=== PATIENT | female | born 1960 | race Caucasian/White ===

== ENCOUNTER → 2020-10-13 | Outpatient (REF) | payer OTHER | LOC: M LAB REF 18:24 | PROVIDERS: ATTEND Internal Medicine Nephrology | DX: E83.42 Hypomagnesemia (principal) ==

== ENCOUNTER → 2021-01-13 | Outpatient (REF) | payer OTHER | LOC: M LAB REF 17:36 | PROVIDERS: ATTEND Internal Medicine Nephrology | DX: E83.42 Hypomagnesemia (principal) ==

== ENCOUNTER → 2024-02-22 | Day surgery (SDC) | payer OTHER ==
[~2024-02-22] VITALS: Ht 157.5 cm; Wt 78.9 kg
[~2024-02-22] MED LIST: ATOR1TAB21 PO; BSS IRRIG/VANCO(10MG)/TOBRA(5MG)/EPINEPH(1:1000-0.5CC)500ML BAG-ORONLY As Ordered ONE; CALC1CAP31 PO; CEFUROXIME 1MG/0.1ML INTRACAMERAL INJ As Ordered ONE; CYCLOPENTOLATE 1% OPHTH SOLN 2ML BTL OS SCH; DIPH50CA29 PO; DOXY100C3 PO; FAMO40TA3 PO; FEBU40TA6 PO; FURO20TA2 PO; HYDR12CA PO; HYDR200T46 PO; LIDOCAINE 1% SDV 5ML VIAL As Ordered ONE; LIDOCAINE 3.5 % 1ML OPHTH TOPICAL GEL OU ONE; MIDAZOLAM INJ 2MG/2ML VIAL As Ordered ONE; OFLOXACIN 0.3 % (OCUFLOX) OPTH SOL 5ML OS ONE; ONDA-83 PO; PHENYLEPHRINE 10% OPHTH SOL 5ML OS PRN; PHENYLEPHRINE 2.5% OPHTH SOL 2ML OS SCH; PREG75CA3 PO; SERT150C PO; TIZA10TA PO; TREL1AER INH; TROPICAMIDE 1% OPHTH SOLN 15ML OS SCH
== END | disposition home or self-care (01) ==
LOC: M SDC 11:10
PROVIDERS: ATTEND Ophthalmology
DX: H25.12 Age-related nuclear cataract, left eye (principal); Z53.8 Procedure and treatment not carried out for other reasons